=== PATIENT | female | born 1980 | race American Indian/Alaskan Native ===

== ENCOUNTER 2020-09-19 10:12 | Emergency (ER) | payer SELFPAY ==
[2020-09-19 10:25] VITALS: BP 142/100
--- NOTE | 2020-09-19 11:01 | Cat Scan Report ---
CT HEAD WITHOUT CONTRAST INDICATION / CLINICAL INFORMATION: blurred vision x 3 days. TECHNIQUE: Axial imaging performed from the skull apex through the skull base without the use of cont rast. Sagittal and coronal reformatted images. All CT scans at this location are performed using CT dose reduction for ALARA by means of automated exposure control. COMPARISON: None available. FINDINGS: CEREBRAL PARENCHYMA: No significant abnormality. No acute territorial infarct. HEMORRHAGE: None. EXTRA-AXIAL SPACES: Normal in size and morphology for the patient's age. VENTRICULAR SYSTEM: Normal in size and morphology for the patient's age. MIDLINE SHIFT OR HERNIATION: None. CEREBELLUM / BRAINSTEM: No significant abnormality. CALVARIUM: No significant abnormality. ORBITS: Normal as visualized. PARANASAL SINUSES / MASTOID AIR CELLS: Normal as visualized. SOFT TISSUES of HEAD: No significant abnormality. ADDITIONAL FINDINGS: None. IMPRESSION: No acute intracranial abnormality. Signer Name: Tay Higginbotham Jr, MD Signed: 09/19/2020 10:56 AM Workstation Name: [id number]
== END 2020-09-19 18:30 | disposition left against medical advice (07) ==
LOC: ED 10:12
DX: H53.8 Other visual disturbances (principal); Z53.21 Procedure and treatment not carried out due to patient leaving prior to being seen by health care provider
CPT/HCPCS: 70450; 82962